=== PATIENT | female | born 1965 | race Caucasian/White ===

== ENCOUNTER → 2017-03-12 | Day surgery (SDC) | payer BC ==
[~2017-03-12] VITALS: Ht 167.6 cm; Wt 71.2 kg
[~2017-03-12] MED LIST: ESTRADIOL1 MG PO; MEDROXYPROGEST2.5 MG PO
--- NOTE | ~2017-03-12 | PROC NOTE ---
[place], [place] PROCEDURE NOTE NAME: PRUDENCE CALLEJAS [facility] #: [id number] UNIT #: [id number] ROOM: DOCTOR: AUDRA DE ANDA MD BIRTHDATE: [birth year] DOS: 03/12/2017 PREOPERATIVE DIAGNOSIS: Constipation. POSTOPERATIVE DIAGNOSIS: Diverticulosis. PROCEDURE: Colonoscopy. ENDOSCOPIST: Audra De Anda M.D. JOURNEYMAN ELECTRICIAN: PGY1. ANESTHESIA: MAC. INDICATIONS: This is a 51-year-old lady who is here for a screening colonoscopy. She has got a history of constipation. The procedure and its complications were explained to the patient in detail preoperatively. Complications that were discussed included but were not limited to bleeding, missed lesions, prolonged pain and colon perforation. She agreed to proceed. DESCRIPTION OF PROCEDURE: After identifying the patient, the patient was brought to the endoscopy suite and placed in the left lateral position. After time-out procedure was called, IV sedation was administered by the anesthesia team. A digital rectal exam was performed, which was within normal limits. An adult colonoscope was now introduced into the anal canal and advanced sequentially into the rectum, sigmoid colon, descending colon, transverse colon and ascending colon up to the cecum. Upon reaching the cecum, the scope was withdrawn. Total withdrawal time was approximately 6 minutes and 45 seconds. During the procedure of withdrawal, there was sigmoid diverticulosis that was visualized, but no other pathology could be seen. The scope was withdrawn and the patient was taken to the recovery room in stable fashion. There were no complications. Based on these findings, the patient is recommended to have another colonoscopy in 10 years or sooner if she has any new symptoms. These findings were discussed with the patient's family and will be discussed with the patient herself in the postoperative recovery. Audra De Anda MD CM:PROCNOTE:PROCEDURE NOTE [id number] AUDRA DE ANDA MD
[2017-03-12 10:16] VITALS: BP 115/71
[2017-03-12 11:18] VITALS: BP 102/61
[2017-03-12 11:35] VITALS: BP 117/71
[2017-03-12 11:50] VITALS: BP 121/74
== END | disposition home or self-care (01) ==
LOC: SDC 03-10 10:15
DX: K57.30 Diverticulosis of large intestine without perforation or abscess without bleeding (principal); Z79.899 Other long term (current) drug therapy; Z80.0 Family history of malignant neoplasm of digestive organs; Z87.891 Personal history of nicotine dependence